=== PATIENT | female | born 1995 | race Caucasian/White ===

== ENCOUNTER 2020-03-12 15:03 | Outpatient (CLI) | payer OTHER ==
--- NOTE | 2020-03-12 18:48 | XRAY Report ---
PROCEDURE: Wrist 3 View RT INDICATIONS: M25.531, M25.551, M53.3 TECHNIQUE: 3 views of the wrist were acquired. COMPARISON: None FINDINGS: Bones: No fractures or dislocations. No suspicious bony lesions. No osseous erosive changes. No per iarticular osteopenia. Soft tissues: No suspicious soft tissue calcifications. IMPRESSION: No osseous lesion. If there are persistent symptoms or continued clinical concern for pathology, then repeat plain film radiographs (7-10 days) or advanced imaging (CT, MR, bone scan) should be consider ed for further evaluation. Reviewed by: Sadaf Mijares MD, PhD on 03/12/2020 5:47 PM [place] Approved by: Sadaf Mijares MD, PhD on 03/12/2020 5:47 PM [facility] Station ID: [id number]
--- NOTE | 2020-03-13 09:28 | XRAY Report ---
PROCEDURE: Hips 2V BILAT INDICATIONS: M25.531, M25.551, M53.3 TECHNIQUE: 2 views of the hip were acquired. COMPARISON: None FINDINGS: Bones: No fractures or dislocations. No suspicious bony lesions. The visualized pelvic ring appear s intact. Soft tissues: No suspicious soft tissue calcifications or masses. IMPRESSION: Hip joint morphology is normal. Joint spaces are well-maintained. Reviewed by: Akua Spears MD on 03/13/2020 9:26 AM PST Approved by: Akua Spears MD on 03/13/2020 9:26 AM PST Station ID: [id number]
--- NOTE | 2020-03-13 10:56 | XRAY Report ---
PROCEDURE: Lumbar Spine 2 View INDICATIONS: M25.531, M25.551, M53.3 TECHNIQUE: 3 views of the lumbar spine were acquired. COMPARISON: None. FINDINGS: Bones: 5 [id number] vertebrae are present. There is normal bony alignment. No vertebral body compression fractures. No suspicious bony lesions. No osseous erosive changes. Intervertebral disc height preserved at all levels. 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 Soft tissues: Overlying bowel gas pattern is normal. No suspicious soft tissue calcifications. IMPRESSION: No osseous lesion. If there is continued clinical concern for pathology, then MRI should be considere d for further evaluation. Reviewed by: Sadaf Mijares MD, PhD on 03/13/2020 9:55 AM [facility] Approved by: Sadaf Mijares MD, PhD on 03/13/2020 9:55 AM [facility] Station ID: [id number]
--- NOTE | 2020-03-13 11:06 | XRAY Report ---
PROCEDURE: SI Joints INDICATIONS: M25.531, M25.551, M53.3 TECHNIQUE: 3 views of the sacroiliac joints were acquired. COMPARISON: None FINDINGS: Bones: No bony erosions or ankylosis. No suspicious bony lesions. No fractures. Soft tissues: Overlying bowel gas pattern is normal. No suspicious soft tissue densities. IMPRESSION: No osseous lesion. If there are persistent symptoms or continued clinical concern for pathology, then advanced imaging (CT, MR, bone scan) should be considered for further evaluation. Reviewed by: Sadaf Mijares MD, PhD on 03/13/2020 10:05 AM [facility] Approved by: Sadaf Mijares MD, PhD on 03/13/2020 10:05 AM [facility] Station ID: [id number]
== END 2020-03-12 15:04 | disposition home or self-care (01) ==
LOC: DI.N 15:03
PROVIDERS: ATTEND Physician Assistant
DX: M25.531 Pain in right wrist (principal); M25.551 Pain in right hip; M53.3 Sacrococcygeal disorders, not elsewhere classified

== ENCOUNTER 2020-03-20 09:18 | Outpatient (CLI) | payer OTHER | END 2020-03-20 09:19 | disposition home or self-care (01) | LOC: COV 09:18 | PROVIDERS: ATTEND Family Medicine | DX: R05 Cough (principal); M79.10 Myalgia, unspecified site; R53.83 Other fatigue; R19.7 Diarrhea, unspecified; Z20.822 Contact with and (suspected) exposure to COVID-19 ==

== ENCOUNTER 2021-09-16 08:52 | Outpatient (CLI) | payer OTHER ==
--- NOTE | 2021-09-16 13:31 | MRI Report ---
PROCEDURE: Wrist RT W/O INDICATIONS: RIGHT WRIST PAIN TECHNIQUE: Noncontrast coronal proton density fast spin echo and T2 fast spin echo with fat saturation; coronal 3-D gradient echo, axial T1 spin echo and T2 fast spin echo with fat saturation, sagittal T1 spin ech o through the wrist. COMPARISON: Right wrist radiographs 03/12/2020. FINDINGS: Image quality: Excellent. Bones and cartilage: The carpal bones are normally aligned. No bone marrow contusions or fractures. No evidence for avascular necrosis. Carpal ligaments: The scapholunate ligament appears mildly irregular and indistinct without a defini te full-thickness tear seen, possibly related to a prior low-grade sprain. Scapholunate interval is n ormal. The lunotriquetral ligament is intact. On sagittal images, the pisohamate ligament appears int act. Triangular fibrocartilage complex: The triangular fibrocartilage appears intact. Tendons and soft tissues: The carpal tunnel structures appear normal, including the median nerve. M ild tendinosis of the flexor pollicis longus tendon. The ulnar nerve appears normal within Guyon's ca nal. Mild tendinosis of the extensor pollicis longus tendon. The remaining extensor tendon compartmen ts demonstrate normal morphology, without pathologic tendon sheath fluid. Lobular ganglion cyst is se en at the volar radial aspect of the wrist measuring approximately 17 x 4 x 2 mm. IMPRESSION: 1.Suspected low-grade sprain of the scapholunate ligament. No full-thickness tear is seen. No widenin g of the scapholunate interval. 2.Mild tendinosis of the flexor pollicis longus and extensor pollicis longus tendons. 3.Lobular ganglion cyst at the volar radial aspect of the wrist measuring 17 mm. Reviewed by: Jose Medina MD on 09/16/2021 1:29 PM PDT Approved by: Jose Medina MD on 09/16/2021 1:29 PM PDT Station ID: [id number]
== END 2021-09-16 08:53 | disposition home or self-care (01) ==
LOC: DI 08:52
PROVIDERS: ATTEND Nurse Practitioner Family
DX: M67.833 Other specified disorders of tendon, right wrist (principal); M67.431 Ganglion, right wrist

== ENCOUNTER 2022-04-12 05:50 | Emergency (ER) | payer OTHER ==
[2022-04-12] MEDS ORDERED: HYDROmorphone 1 MG/ML CARPUJECT IM STA (06:21)
[2022-04-12] MEDS ORDERED: KETOROLAC 60 MG/2 ML VIAL IM STA (06:21)
[2022-04-12] MEDS ORDERED: DEXAMETHASONE 10 MG/ML VIAL IM STA (06:21)
--- NOTE | 2022-04-12 06:34 | ED Physician Documentation ---
History of Present Illness - Stated complaint Stated Complaint: NECK PX - Chief complaint Chief Complaint: General - History obtained from History obtained from: Patient - Additonal information Additional information: The patient comes to the emergency department with chief complaint of midline neck pain. She states that started roughly 5 days ago and that she noticed it when she woke up. She thought she just slept wrong and the pain seemed a little better throughout the day however next day, it was back. She states that she has a sharp pain at the base of her head and then a dull pain that goes down the rest of her neck. She states she feels in the midline but also somewhat off to each side of her spine. It ends just a few centimeters below the tops of her scapulae. She denies any fevers or chills. No headache or visual changes. No injury. No numbness or tingling in her upper extremities. No weakness. She states she can barely move her neck because it hurts a lot. She has never had this happen before. No other complaints at this time. PD PAST MEDICAL HISTORY - Past Medical History Past Medical History: Yes Psych: ADD/ADHD - Past Surgical History Past Surgical History: No - Present Medications Home Medications: Ambulatory Orders Medication Instructions Recorded Confirmed Dextroamphetamine/Amphetamine 10 mg PO DAILY 04/12/22 04/12/22 [Adderall Xr 10 mg Capsule] HYDROcod/ACETAM 5/325 [[place] 5/325] 1 - 2 tablet PO Q6H PRN #14 tablet 04/12/22 Norethindrone-E.estradiol-Iron 1 tab PO DAILY 04/12/22 04/12/22 [Junel Fe 24 Tablet] predniSONE [Deltasone] 60 mg PO DAILY 5 Days #15 tablet 04/12/22 HYDROcod/ACETAM 5/325 [[place] 5/325] 1 - 2 tab PO Q6H PRN #15 tablet 04/14/22 - Allergies Allergies/Adverse Reactions: Allergies Allergy/AdvReac Type Severity Reaction Status Date / Time Benzodiazepines Allergy Respiratory Verified 04/12/22 06:10 - Social History Does the pt smoke?: No Smoking Status: Never smoker Does the pt drink ETOH?: No Does the pt have substance abuse?: No - Immunizations Immunizations are current?: Yes - POLST Patient has POLST: No PD ED PE NORMAL - Vitals Vital signs reviewed: Yes - General General: Alert and oriented X 3, No acute distress, Well developed/nourished, Other (The patient appears uncomfortable and sits very stiffly upright in bed, but is nontoxic in appearance) - HEENT HEENT: Atraumatic, PERRL, EOMI, Moist mucous membranes - Neck Neck: Other (The patient has some tenderness along the course of her cervical spine, over the entire length. She also has some tenderness extending to about T4-5. There is no muscular tenderness. Moderately limited range of flexion, secondary to pain.) - Cardiac Cardiac: RRR, No murmur, Strong equal pulses - Respiratory Respiratory: No respiratory distress, Clear bilaterally - Derm Derm: Normal color, Warm and dry, No rash - Extremities Extremities: No deformity - Neuro Neuro: Alert and oriented X 3, hot patcher 2-12 intact, No motor deficit, No sensory deficit, Normal speech - Psych Psych: Normal mood, Normal affect Results - Vitals Vitals: Oxygen O2 Source Room air PD Medical Decision Making - ED course Complexity details: reviewed results, re-evaluated patient, considered differential, d/w patient ED course: The patient was well-appearing and did not have a fever or other symptoms of illness, and although she did have limited flexion, I did not feel that her symptoms represented meningismus. The patient is very well-appearing in the emergency department, other than her neck being uncomfortable. She had not had any trauma to raise concern for significant injury and did not have any neurologic compromise. I sent her for x-rays of the C-spine, which were unremarkable. I treated her symptomatically with Toradol, Dilaudid, and Decadron. We have discussed symptomatic management at home, and the usual indications for return. Departure - Departure Disposition: 01 Home, Self Care Clinical Impression: Neck pain Condition: Stable Instructions: ED Neck Pain No Trauma Prescriptions: predniSONE [Deltasone] 60 mg PO DAILY 5 Days #15 tablet HYDROcod/ACETAM 5/325 [[place] 5/325] 1 - 2 tablet PO Q6H PRN #14 tablet PRN Reason: Pain HYDROcod/ACETAM 5/325 [[place] 5/325] 1 - 2 tab PO Q6H PRN #15 tablet PRN Reason: Pain Comments: Your x-ray series of the neck looks good. Most likely, your neck pain started from mild positioning during sleep and was aggravated on a daily and nightly basis by further positioning and muscular tension, causing development of inflammation. There is no evidence of more serious causes of neck pain such as meningitis, and there is no trauma or neurologic deficits to raise concern for a more serious condition of the spine or spinal cord. A prescription for pain medication and for a steroid for anti-inflammatory effect has been electronically transmitted to the [facility] pharmacy in [place]. You should also use heat, massage, and stretching/range of motion to help mobilize your neck and improve your comfort level. Discharge Date/Time: 04/12/22 07:41
[2022-04-12] MEDS ORDERED: HYDROcod/ACETAM 5/325 MG TABLET PO STA (07:28)
[2022-04-12 07:39] VITALS: BP 118/74
--- NOTE | 2022-04-12 08:08 | XRAY Report ---
PROCEDURE: Cervical Spine 2 View INDICATIONS: midline neck/spine pain TECHNIQUE: 3 view(s) of the cervical spine were acquired. COMPARISON: None. FINDINGS: Bones: No fractures or dislocations to the T1 level. Straightening of normal cervical lordosis is s een. The lateral masses of C1 appear intact on the odontoid view. No suspicious bony lesions. Soft tissues: No prevertebral soft tissue swelling. IMPRESSION: No acute cervical spine fracture or dislocation. Reviewed by: Hamilton Plummer MD on 04/12/2022 8:06 AM PST Approved by: Hamilton Plummer MD on 04/12/2022 8:[address] [facility] Station ID: [id number]
--- NOTE | 2022-04-14 20:07 | ED Physician Documentation ---
ED Addendum - Addendum Addendum: 04/14/22 20:07 Took call from patient's. She has not been able to able to fill the pr escription. Looking at the chart it looks like Dr. Chau wrote the prescription but did not electronically prescribe it. The prescription was rewritten and sent to the [facility] pharmacy at the patient's request.
== END 2022-04-12 07:41 | disposition home or self-care (01) ==
LOC: ED 05:50
DX: M54.2 Cervicalgia (principal)
CPT/HCPCS: 72040; 96372; 99283; A9270; J1170